=== PATIENT | female | born 1970 | race African-American/Black ===

== ENCOUNTER 2021-10-05 04:31 | Day surgery (SDC) | payer BC ==
[2021-10-03 16:44] VITALS: BMI 34.9
[2021-10-05] MEDS ORDERED: IBUPROFEN 400 MG TABLET (FP) PO PRN (10:46)
[2021-10-05] MEDS ORDERED: ACETAMINOPHEN 325 MG TABLET (FP) PO PRN (10:46)
[2021-10-05] MEDS ORDERED: ACETAMINOPHEN INJECTION 100 ML IVPB ONE (10:49)
[2021-10-05] MEDS ORDERED: KETAMINE HCL 200 MG/20 ML VIAL ONE (10:51)
[2021-10-05] MEDS ORDERED: MIDAZOLAM HCL 2 MG/2 ML SINGLE DOSE VIAL ONE (10:51)
[2021-10-05] MEDS ORDERED: PROPOFOL 20 ML ONE (10:51)
[2021-10-05] MEDS ORDERED: LIDOCAINE HCL/PF 2% SDV 5ML VIAL ONE (10:52)
[2021-10-05] MEDS ORDERED: KETOROLAC TROMETHAMINE 30 MG/1 ML VIAL ONE (11:22)
[2021-10-05] MEDS ORDERED: FERRIC SUBSULFATE 500 ML BOTTLE TP ONE (12:00)
[2021-10-05] MEDS ORDERED: IODINE/POTASSIUM IODIDE 5%/10% 14 ML BOTTLE NR ONE (12:00)
[2021-10-05 16:36] VITALS: BP 117/68; PULSE 80; TEMP 97.2
== END 2021-10-05 17:45 | disposition home or self-care (01) ==
LOC: JASUSAT 04:31
PROVIDERS: ATTEND Obstetrics & Gynecology
PROC: 0UBC7ZX Excision of Cervix, Via Natural or Artificial Opening, Diagnostic (ICD-10-PCS; principal; 2021-10-05 11:00)
DX: N87.0 Mild cervical dysplasia (principal)
CPT/HCPCS: 81025; 88305-TC; 88307-TC; 94760; J0131